=== PATIENT | male | born 1990 | race Caucasian/White ===

== ENCOUNTER → 2018-01-27 10:46 | Outpatient (CLI) | payer OTHER, SELFPAY ==
[2018-01-27 11:31] LABS: Basophils % 0.3 % (0.1-2.0); Eosinophils # 0.1 K/mm3 (0.0-0.4); Eosinophils % 1.1 % (0.1-12.0); Hemoglobin 14.5 g/dL (14.1-18.0); Lymphocytes % 24.2 K/mm3 (10-50); Mean Corpuscular HGB Conc 31.5 g/dL (31.8-35.4); Mean Corpuscular Hemoglobin 30.6 pg (27.0-31.2); Mean Corpuscular Volume 97.2 fl (80-94); Mean Platelet Volume 7.4 fl (7.4-10.4); Monocytes # 0.3 K/mm3 (0.1-1.0); Monocytes % 3.1 % (1.7-9.3); Neutrophils # 5.9 K/mm3 (1.8-7.8); Neutrophils % 71.2 % (37.0-80.0); Platelet Count 264 K/mm3 (142-424); Red Blood Count 4.74 M/mm3 (4.60-6.20); Red Cell Distribution Width 13.8 % (11.5-17.5); White Blood Count 8.3 K/mm3 (4.8-10.8)
[2018-01-27 12:34] LABS: Alanine Aminotransferase 57 U/L (12-78); Albumin Level 3.1 gm/dL (3.4-5.0); Albumin/Globulin Ratio 0.9 (1.1-1.8); Alkaline Phosphatase 93 U/L (46-116); Anion Gap 14.3 mEq/L (5-15); Aspartate Amino Transferase 43 U/L (15-37); Bilirubin,Total 0.5 mg/dL (0.2-1.0); Blood Urea Nitrogen 11 mg/dL (7-18); Calcium 8.2 mg/dL (8.5-10.1); Carbon Dioxide 24 mmol/L (21.0-32.0); Chloride 102 mmol/L (98-107); Creatinine,Serum 0.88 mg/dL (0.70-1.30); Estimated Glomerular Filt Rate 104 ml/min (>60); GFR (African American) 126 ML/MIN (>60); Globulin 3.5 gm/dl (1.3-3.2); Glucose 102 mg/dL (74-106); Potassium 4.3 mmoL/L (3.5-5.1); Sodium 136 mmol/L (136-145); Total Protein,Serum 6.6 gm/dL (6.4-8.2)
== END ==
PROVIDERS: Visit Provider Nurse Practitioner Family
DX: R56.9 Unspecified convulsions (principal)
CPT/HCPCS: 36415; 80053; 85025

== ENCOUNTER 2018-02-07 12:51 | Outpatient (RCR) | payer OTHER, SELFPAY ==
--- NOTE | 2018-02-07 14:18 | HMH.SLAPHASI ---
Speech & Language Evaluation Speech/Language Aphasia Evaluation Start: 02/07/18 13:59 Freq: once Status: Complete Protocol: Document 02/07/18 13:59 SAILAJA (Rec: 02/07/18 14:18 SAILAJA [id number]) Aphasia Assessment/Goals/Plan Assessment Date of Evaluation: 02/07/18 Evaluation Type Initial Certification Assessment/Problems Articulation deficits Does Patient Qualify for Service Yes Qualify/Failure Comment Severe articulation disorder based on administration of criterion referenced assessment and clinical judgement. Plan Pt will be seen # times/week 1 for # weeks 8 Anticipate reaching STG in # weeks 4 Anticipate reaching LTG in # weeks 8 Pt/Guardian verbally ack understanding Yes of dx/prognosis/goals Pt/Guardian verbally ack understanding Yes of/consent to tx prog G -code Required No Podiatric Physician Goals Increase oral motor tone to improve Yes intelligibility. Increase intelligibility w/use of Yes traditional articulation treatment. Speech & Language HPI History Present Illness Description of Patient Problem Speech disorder Aphasia Evaluations Communication Speech Intelligibility Mr. Suarez has numerous sounds in error characterized by lateralization of /s/, /z/, /sh/, /ch/, and /j/ as well as misarticulation of all stressed and unstressed /r/ phoneme in all positions. His overall intelligibility is judged to be 75% intelligibile but noticeable in error. All misarticulations are not related to a significant medical event according to patient or physician. These errors have likely been present throughout Mr. Suarez life, however recent change in life circumstances he now is seeking to remediation of these errors. AC Comment AC is [facility] RC Comment RC is [facility] SHARRI Comment VE is [facility] WL Comment WL is [facility] AOM Comment AOM is [facility] CLS Comment CLS [facility] CT Comment CT is [facility] DT Comment DT is [facility] DR Comment is [facility]
== END 2018-02-07 12:52 | disposition home or self-care (01) ==
LOC: ST 12:51
PROVIDERS: Family Provider Family Medicine; PCP Emergency Medicine; Visit Provider Nurse Practitioner Family
DX: R56.9 Unspecified convulsions (principal)
CPT/HCPCS: 92523; 96105

== ENCOUNTER → 2018-04-26 10:29 | Outpatient (CLI) | payer OTHER, SELFPAY | PROVIDERS: PCP Nurse Practitioner Family; Visit Provider Internal Medicine | DX: R00.2 Palpitations (principal); F41.9 Anxiety disorder, unspecified; I10 Essential (primary) hypertension; R56.9 Unspecified convulsions | CPT/HCPCS: 93225; 93226 ==

== ENCOUNTER → 2018-05-15 14:55 | Outpatient (CLI) | payer OTHER, SELFPAY ==
--- NOTE | 2018-05-15 14:56 | CA_ITS ---
PROCEDURE: 2-D M-mode and color Doppler study INDICATIONS FOR THE TEST: Chest pain X COPD Heart Murmur Tobacco Smoking PalpitationsX Fatigue Syncope Edema HypertensionXDiabetes Mellitus Rheumatic Fever SOB NATION ObesityXHyperlipidemia Family History HD Additional History TDS MORBID OEBSITY PATIENT INFORMATION HEIGHT: 66 WEIGHT:326 GENDER: Male B/P:140/76 2-D/M-MODE INTERPRETATION: 2-D MEASUREMENTS OBSERVED VALUES IN CMS Right Ventricular Dimension (RVDd) 2.3 Interventricular Septum (Thickness)(IVsd) .9 Left Ventricular Internal Dimensions(LVIDd) 5.4 Left Ventricular Posterior Wall (Thickness)(LVPWd) .9 Aortic Root 2.8 Aortic Cusp Separation 2.1 Left Atrial Dimensions (LAD) 3.7 2D 1. Left atrium is normal size, left ventricle is normal size, there is no concentric left ventricular hypertrophy, visually estimated ejection fraction 55% with no regional wall motion abnormality. 2. The right atrium and right ventricle is normal size and contractility. 3. The aortic, mitral and tricuspid valve. 4. No significant pericardial effusion. 5. The pulmonic valve is poorly visualized. DOPPLER INTERROGATION: Doppler interrogation of the aortic, mitral and tricuspid valvular presence of mild mitral and tricuspid regurgitation, tricuspid and jet velocity is insufficient for calculation of the right ventricular systolic pressure, diastolic parameters are inconclusive. CONCLUSION: 1. Normal left ventricular size, preserved left ventricular systolic function, visually estimated ejection fraction 55% with no regional wall motion abnormality. 2. Mild mitral and tricuspid regurgitation 3. No significant pericardial effusion noted.
== END ==
PROVIDERS: Family Provider Family Medicine; PCP Nurse Practitioner Family; Visit Provider Internal Medicine
DX: R07.89 Other chest pain (principal); I10 Essential (primary) hypertension; E66.9 Obesity, unspecified; F41.9 Anxiety disorder, unspecified; G40.909 Epilepsy, unspecified, not intractable, without status epilepticus; R00.2 Palpitations
CPT/HCPCS: 93306